=== PATIENT | male | born 1990 | race African-American/Black ===

== ENCOUNTER 2019-12-30 19:55 | Emergency (ER) | payer OTHER ==
[~2019-12-30] VITALS: Ht 172.7 cm; Wt 104.5 kg
[2019-12-30] MEDS ORDERED: cefTRIAXone IM 250 MG VIAL IM ONE (21:15)
[2019-12-30] MEDS ORDERED: AZITHROMYCIN 250 MG TABLET. PO ONE (21:15)
[2019-12-30 21:21] LABS: BILIRUBIN,URINE NEGATIVE (NEG); CLARITY,URINE CLEAR; COLOR,URINE YELLOW; NITRITE,URINE NEGATIVE (NEG); PH,URINE 5.5 (<5.0-8.0); PROTEIN,URINE NEGATIVE (NEG-TRACE)
[2019-12-30 21:34] LABS: SQUAMOUS EPITHELIAL CELL,UR FEW /LPF
[2019-12-30 21:35] LABS: BACTERIA,URINE 0 /HPF (0-FEW); RBC,URINE 0 /HPF (0-2); WBC,URINE >40 /HPF (0-4)
--- NOTE | 2019-12-30 21:52 | PHYS DOC ---
Past Medical History Past Medical History: Asthma Past Surgical History: No Surgical History Smoking Status: Current Every Day Smoker Alcohol Use: Occasionally Drug Use: None General Adult EDM: Chief Complaint: SEXUALLY TRANSMITTED DISEASE HPI: HPI: Patient is a 29 year old AA male who presents to the emergency department with complaints of pain with urination for the last week and concerns for sexually transmitted infection. Patient denies any irregular penile discharge, testicular pain, abdominal pain, fever, nausea, vomiting, diarrhea, back pain, fever, body aches, or fatigue. He denies any difficulty urinating. He denies any blood in his urine. He currently denies any pain at this time. Patient denies any known exposure to a sexually transmitted infection. Review of Systems: Review of Systems: Constitutional: Denies fever or chills. [] HENT: Denies nasal congestion or sore throat. [] Respiratory: Denies cough or shortness of breath. [] Cardiovascular: Denies chest pain or edema. [] GI: Denies abdominal pain, nausea, vomiting, or diarrhea. [] : See HPI Musculoskeletal: Denies back pain or joint pain. [] Integument: Denies rash. [] Neurologic: Denies headache Psychiatric: Denies depression or anxiety. [] Heart Score: Risk Factors: Risk Factors: DM, Current or recent (<one month) smoker, HTN, HLP, family history of CAD, obesity. Risk Scores: Score 0 - 3: 2.5% MACE over next 6 weeks - Discharge Home Score 4 - 6: 20.3% MACE over next 6 weeks - Admit for Clinical Observation Score 7 - 10: 72.7% MACE over next 6 weeks - Early Invasive Strategies Current Medications: Current Medications Medications (Trade) Dose Ordered Sig/Kelley Start Time Stop Time Status Last Admin Dose Admin Azithromycin (Zithromax) 1,000 mg 1X ONCE 12/30/19 21:15 12/30/19 21:16 DC Ceftriaxone Sodium (Rocephin Im) 250 mg 1X ONCE 12/30/19 21:15 12/30/19 21:16 DC Allergies: Allergies: Allergies Coded Allergies Type Severity Reaction Last Updated Verified Sulfa (Sulfonamide Antibiotics) Allergy Intermediate 07/10/14 No sulfamethoxazole Allergy Unknown 12/30/19 Yes trimethoprim Allergy Unknown 12/30/19 Yes Physical Exam: PE: Constitutional: Well developed, well nourished, no acute distress, non-toxic appearance. [] HENT: Normocephalic, atraumatic, bilateral external ears normal, nose normal. [] Eyes: PERRLA, EOMI, conjunctiva normal, no discharge. [] Neck: Normal range of motion, no stridor. [] Cardiovascular:Heart rate regular rhythm Lungs & Thorax: Respirations even and unlabored, no retractions, no respiratory distress Abdomen: soft, no tenderness Skin: Warm, dry, no erythema, no rash. [] Extremities: No cyanosis, ROM intact, no edema. [] Neurologic: Alert and oriented X 3, no focal deficits noted. [] Psychologic: Affect normal, judgement normal, mood normal. [] Current Patient Data: Labs: Laboratory Tests Test 12/30/19 21:13 Urine Collection Type Unknown Urine Color Yellow Urine Clarity Clear Urine pH 5.5 (<5.0-8.0) Urine Specific [place] >=1.030 (1.000-1.030) Urine Protein Negative mg/dL (NEG-TRACE) Urine Glucose (UA) Negative mg/dL (NEG) Urine Ketones (Stick) Negative mg/dL (NEG) Urine Blood Negative (NEG) Urine Nitrite Negative (NEG) Urine Bilirubin Negative (NEG) Urine Urobilinogen Dipstick 1.0 mg/dL (0.2 mg/dL) Urine Leukocyte Esterase Moderate (NEG) Urine RBC 0 /HPF (0-2) Urine WBC >40 /HPF (0-4) Urine Squamous Epithelial Cells Few /LPF Urine Bacteria 0 /HPF (0-FEW) Urine Mucus Marked /LPF Vital Signs: Vital Signs Date Time Temp Pulse Resp B/P (MAP) Pulse Ox O2 Delivery O2 Flow Rate FiO2 12/30/19 21:07 98.7 62 20 156/67 (96) 98 Room Air 98.7 EKG: EKG: [] Radiology/Procedures: Radiology/Procedures: [] Course & Med Decision Making: Course & Med Decision Making Pertinent Labs and Imaging studies reviewed. (See chart for details) Patient was treated prophylactically with 250 mg of IM Rocephin, and 1 g of PO Zithromax. Patient was instructed to avoid having intercourse until the results of gonorrhea and chlamydia testing are available, patient was notified that these results would not be available for 48 hours. If one or both of these tests is positive, patient needs to refrain from intercourse for approximately 1 week following the treatment of any current partners. Patient verbalized an understanding of home care, medications, follow-up, and return to ED instructions and was in agreement with the plan of care. [] Jameson Disclaimer: Dragon Disclaimer: This electronic medical record was generated, in whole or in part, using a voice recognition dictation system. Departure Departure Impression: Primary Impression: Contact with and (suspected) exposure to infections with a predominantly sexual mode of transmission Additional Impression: Dysuria Disposition: HOME, SELF-CARE Condition: STABLE Referrals: NO PCP (PCP) Patient Instructions: Sexually Transmitted Disease, [id number] Additional Instructions: Fill the prescription and use as directed. Recommend that you go to your local health department for comprehensive sexually transmitted disease testing. You have been treated for a suspected gonorrhea and chlamydia. Avoid having intercourse until the results of gonorrhea and chlamydia testing are available, these results will not be available for 48 hours. If one or both of these tests is positive, you need to refrain from intercourse for approximately 1 week following the treatment of any current partners. Follow-up with your primary care doctor if symptoms persist, return to ER symptoms worsen. Justicifation of Admission Dx: Justifications for Admission: Justification of Admission Dx: N/A OMID HAMMOND APRN Dec 30, 2019 21:52
[2019-12-30 22:10] VITALS: BP 143/82
== END 2019-12-30 22:12 | disposition home or self-care (01) ==
LOC: ER 19:55
DX: Z20.2 Contact with and (suspected) exposure to infections with a predominantly sexual mode of transmission (principal); R30.0 Dysuria; J45.909 Unspecified asthma, uncomplicated; F17.200 Nicotine dependence, unspecified, uncomplicated; Z88.1 Allergy status to other antibiotic agents; Z88.2 Allergy status to sulfonamides
CPT/HCPCS: 81001; 87491; 87591; 96372; 99283; J0696

== ENCOUNTER 2020-08-29 22:10 | Emergency (ER) | payer SELFPAY ==
[~2020-08-29] VITALS: Ht 172.7 cm; Wt 102.0 kg
[2020-08-29 22:20] VITALS: BP 176/107
--- NOTE | 2020-08-29 23:11 | RAD ---
Exam: Right finger 3 views INDICATION: Right thumb pain TECHNIQUE: Frontal view of the right hand with oblique and lateral views of the first digit Comparisons: None FINDINGS: Bone mineralization is normal. No acute or healed fractures. Soft tissues are unremarkable. Joint spa monica are well-maintained. IMPRESSION: No acute osseous abnormality. Electronically signed by: Deirdre Vu MD (08/29/2020 11:08 PM) BELE[facility]
--- NOTE | 2020-08-29 23:24 | PHYS DOC ---
Past Medical History Past Medical History: No Pertinent History Past Surgical History: No Surgical History Smoking Status: Current Every Day Smoker Additional Information: <0.25ppd Alcohol Use: None Drug Use: None General Adult EDM: Chief Complaint: THUMB HPI: HPI: 29-year-old male past medical history of tobacco dependence and occasional marijuana use presents the ED with complaints of focal, right thumb pain, worse with extension and pressure started 2 weeks ago after patient punched a wall. States pain is not gone away and was concerned it was fractured. This is patient's dominant hand and denies any prior fracture to this digit or hand. Admits to smoking marijuana earlier tonight. Denies associated chest pain, confusion or difficulties breathing. Denies any methamphetamine or alcohol abuse. Review of Systems: Review of Systems: Constitutional: Denies fever or chills. [] Eyes: Denies change in visual acuity or eye discharge HENT: Denies nasal congestion or sore throat. [] Respiratory: Denies cough or shortness of breath. [] Cardiovascular: Denies chest pain or edema. [] GI: Denies abdominal pain, nausea, vomiting MSK: Denies any joint deformity or swollen joint Integument: Denies rash or diaphoresis Neurologic: Denies headache, neck stiffness, focal weakness or sensory changes. Psychiatric: Denies depression or anxiety, denies suicidal or homicidal ideations Heart Score: C/O Chest Pain: No Risk Factors: Risk Factors: DM, Current or recent (<one month) smoker, HTN, HLP, family history of CAD, obesity. Risk Scores: Score 0 - 3: 2.5% MACE over next 6 weeks - Discharge Home Score 4 - 6: 20.3% MACE over next 6 weeks - Admit for Clinical Observation Score 7 - 10: 72.7% MACE over next 6 weeks - Early Invasive Strategies Allergies: Allergies: Allergies Coded Allergies Type Severity Reaction Last Updated Verified Sulfa (Sulfonamide Antibiotics) Allergy Intermediate 07/10/14 No sulfamethoxazole Allergy Unknown 12/30/19 Yes trimethoprim Allergy Unknown 12/30/19 Yes Physical Exam: PE: Constitutional: Well developed, well nourished, no acute distress, non-toxic appearance, malodorous with skunk/marijuana sent, hypertensive HENT: Normocephalic, atraumatic, glossy eyes with mild conjunctival injection- eyelid drooping consistent with marijuana intoxication Eyes: EOMI, conjunctiva normal, no discharge. Neck: Normal range of motion, supple, no nuchal rigidity or meningismus Cardiovascular: S1/2 present, tachycardic Lungs & Thorax: Speaking in full sentences, bilateral equal chest rise, no tachypnea or increased work of breathing Skin: Warm, dry, no erythema, no rash. [] Extremities: ttp over right vental aspect of 1st mcp joint, thumb with full range of motion including rotation/counter rotation flexion/extension/abduction/adduction, no pain over right snuffbox, range of motion of right upper extremity, equal radial pulses, no joint swelling/increased warmth or rash Neurologic: Alert and oriented X 3, normal motor function, normal sensory function, no focal deficits noted. [] Psychologic: Affect normal, judgement normal, mood normal. [] Current Patient Data: Vital Signs: Vital Signs Date Time Temp Pulse Resp B/P (MAP) Pulse Ox O2 Delivery O2 Flow Rate FiO2 08/29/20 22:20 98.2 104 20 176/107 (130) 99 Room Air 98.2 EKG: EKG: [] Radiology/Procedures: Radiology/Procedures: IMAGING REPORT Signed PATIENT: RADHA ALCOCER ACCOUNT: [id number] : 1990 LOCATION: ER AGE: 29 SEX: M EXAM STATUS: REG ER ORD. PHYSICIAN: DANIELE VERONICA DO REASON: right thumb pain PROCEDURE: FINGER(S) RIGHT Exam: Right finger 3 views INDICATION: Right thumb pain TECHNIQUE: Frontal view of the right hand with oblique and lateral views of the first digit Comparisons: None FINDINGS: Bone mineralization is normal. No acute or healed fractures. Soft tissues are unremarkable. Joint spaces are well-maintained. IMPRESSION: No acute osseous abnormality. Electronically signed by: Deirdre Kay MD (08/29/2020 11:08 PM) [facility] DICTATED and SIGNED BY: DEIRDRE KAY MD DATE: 08/29/20 [id number] 0 Course & Med Decision Making: Course & Med Decision Making Pertinent Labs and Imaging studies reviewed. (See chart for details) Concern for right first MCP joint pain, neurovascular intact with full range of motion. Imaging not consistent with any fracture. Recommend rice instructions and [id number] analgesia as needed for pain. Patient with uncontrolled, asymptomatic hypertension in the setting of marijuana abuse. Will discharge home with strict ED return precautions were given for neurologic deficits, skin color changes, severe pain or repeat injury. Encouraged urgent outpatient follow-up with PMD and hand surgery as needed for definitive management. Life- threatening processes were considered but are low suspicion at this time, given history, physical exam and ED workup. Pt was educated on all prescription medications and adverse effects. All patient's questions were answered and pt was stable at time of discharge. Life/limb-threatening differential includes but is not limited to, trauma (fracture, dislocation, laceration, compartment syndrome, tendon or ligament injury), neurovascular injury or deficitcva/tia, infection (osteomyelitis, abscess, cellulitis, septic arthritis, necrotizing fasciitis), deep vein thrombosis, renal/cardiac/liver disease, medication adverse effect, lymphedema/anasarca, vascular insufficiency or malignancy, I spoken with the patient and her caregivers. I explained the patient's condition, diagnoses and treatment plan based on the information available to me at this time. I have answered the patient and her caregiver's questions and addressed any concerns. The patient and her caregivers have a good understanding of patient's diagnosis, condition and treatment plan as can be expected at this point. Vital signs have been stable. Patient's condition is stable and appropriate for discharge from the emergency department. Patient will pursue further outpatient evaluation with primary care physician or other designated or consulting physician as outlined in the discharge instructions. The patient and/or caregivers are agreeable to this plan of care and follow-up instructions have been explained in detail. The patient and/or caregivers have received these instructions in written form and have expressed an understanding of the discharge instructions. The patient and/or caregivers are aware that any significant change of condition or worsening of symptoms should prompt immediate return to this or the closest emergency department or call to 911. Zara Disclaimer: Zara Disclaimer: This electronic medical record was generated, in whole or in part, using a voice recognition dictation system. Departure Departure Impression: Primary Impression: Sprain, MCP, hand, right Additional Impressions: Marijuana smoker Uncontrolled hypertension Disposition: 01 DC HOME SELF CARE/HOMELESS Condition: STABLE Referrals: NO PCP (PCP) To repeat blood pressure in the next 7 days FOLLOW UP WITH FAMILY MEDICINE: Family Medicine Address: [address] [place] [address], [address] [place] [address] Patient Instructions: Hypertension, RICE - Routine Care for Injuries, Thumb Sprain Additional Instructions: [facility] Appointments may be made with Ralph Yeung MD, Cj Sanchez MD, Jorge Luis Holland MD or Elsi Romero MD, by calling [phone] EMERGENCY DEPARTMENT GENERAL DISCHARGE INSTRUCTIONS Thank you for coming to [facility] Emergency Department (ED) today and trusting us with you care. We trust that you had a positive experience in our Emergency Department. If you wish to speak to the department management, you may call the Director at [phone]. YOUR FOLLOW UP INSTRUCTIONS ARE FOLLOWS: 1. Do you have a private Doctor? If you do not have a private doctor, please ask for a resource list of physicians or clinics that may be able to assist you with follow up care. 2. The Emergency Physicain has interpreted your x-rays. The X-Ray specialist will also review them. If there is a change in the findings, you will be notified in 48 hours when at all possible. 3. A lab test or culture has been done, your results will be reviewed and you will be notified if you need a change in treatment. ADDITIONAL INSTRUCTIONS AND INFORMATION: 1. Your care today has been supervised by a physician who is specially trained in emergency care. Many problems require more than one evaluation for a complete diagnosis and treatment. We recommend that you schedule your follow up appointment as recommended to ensure complete treatment of you illness or injury. If you are unable to obtain follow up care and continue to have a problem, or if your condition worsens, we recommend that you return to the ED. 2. We are not able to safely determine your condition over the phone nor are we able to give sound medical advice over the phone. For these safety reasons, if you call for medical advice we will ask you to come to the ED for further evaluation. 3. If you have any questions regarding these discharge instructions please call the ED at [phone]. SAFETY INFORMATION: In the interest of safety, wellness, and injury prevention; we encourage you to wear your sealbelt, if you smoke; quite smoking, and we encourage family to use a protective helmet for bicycling and other sporting events that present an increased risk for head injury. IF YOUR SYMPTOMS WORSEN OR NEW SYMPTOMS DEVELOP, OR YOU HAVE CONCERNS ABOUT YOUR CONDITION; OR IF YOUR CONDITION WORSENS WHILE YOU ARE WAITING FOR YOUR FOLLOW UP APPOINTMENT; EITHER CONTACT YOUR PRIMARY CARE DOCTOR, THE PHYSICIAN WHOSE NAME AND NUMBER YOU WERE GIVEN, OR RETURN TO THE ED IMMEDIATELY. [facility] MED[facility] CENTERDANIELE DO Aug 29, 2020 23:24
== END 2020-08-30 00:18 | disposition home or self-care (01) ==
LOC: ER 22:10
DX: S63.641A Sprain of metacarpophalangeal joint of right thumb, initial encounter (principal); F12.90 Cannabis use, unspecified, uncomplicated; I10 Essential (primary) hypertension; F17.200 Nicotine dependence, unspecified, uncomplicated; Z88.1 Allergy status to other antibiotic agents; Z88.2 Allergy status to sulfonamides; W22.01XA Walked into wall, initial encounter; Y93.89 Activity, other specified; Y92.89 Other specified places as the place of occurrence of the external cause; Y99.8 Other external cause status
CPT/HCPCS: 73140; 99283